=== PATIENT | female | born 1945 | race Caucasian/White ===

== ENCOUNTER 2017-10-31 14:29 | Observation (INO) | payer MEDICARE ==
[2017-10-31] MEDS ORDERED: TEMAZEPAM 15 MG CAPSULE PO PRN (15:30)
[2017-10-31 16:36] LABS: BASO % 0.4 % (0-6); EOS % 1.1 % (0-6); GRAN % 64.4 % (47-80); HEMATOCRIT 33.4 % (35.0-47.0); LYMPH % 23.9 % (16-45); MEAN CELL VOLUME 75.6 fl (81-97); MEAN CORPUSCULAR HEMOGLOBIN 22.6 pg (27-33); MEAN CORPUSCULAR HGB CONC 29.9 g/dl (32-36); MEAN PLATELET VOLUME 9.9 fl (7.4-10.4); MONO % 10.2 % (0-9); PLATELET COUNT 528 K/uL (130-400); RED BLOOD COUNT 4.42 M/uL (3.80-5.40); WHITE BLOOD COUNT W/O DIFF 7.3 K/uL (4.2-12.2)
[2017-10-31 16:50] LABS: BLOOD UREA NITROGEN 37 mg/dL (8-23); CREATININE 1.2 mg/dL (0.5-0.9); EST GLOMERULAR FILTRATION RATE 47 mL/min; INR 1.1; PARTIAL THROMBOPLASTIN TIME 32.9 SECONDS (24.5-39.1); PROTHROMBIN TIME (PATIENT) 11.6 SECONDS (9.5-12.1)
[2017-10-31 16:51] LABS: TOTAL PROTEIN 7.2 g/dL (6.6-8.7)
[2017-10-31 16:52] LABS: RED CELL DISTRIBUTION WIDTH 25.1 % (11.5-14.5)
[2017-10-31 16:53] LABS: GLUCOSE,RANDOM 103 mg/dL (74-109)
[2017-10-31 16:56] LABS: ALBUMIN 4.5 g/dL (4.0-5.0); ALKALINE PHOSPHATASE 71 U/L (35-104); ALT/SGPT 7 U/L (<33); AST/SGOT 18 U/L (10.0-35.0)
[2017-10-31 16:58] LABS: BILIRUBIN,DIRECT < 0.2 mg/dL (0-0.3)
[2017-10-31 16:58] LABS: % SATURATION 33 % (20-50)
[2017-10-31 17:07] LABS: FERRITIN 36.36 ng/mL (13-150)
[2017-10-31] MEDS: BISACODYL 5 MG TABLET PO ONE ×2 (18:23→18:46)
[2017-10-31] MEDS: FERROUS SULFATE 325 MG TAB PO SCH ×2 (18:46→21:47)
[2017-10-31] MEDS: 0.9 % SODIUM CHLORIDE 1000ML 1,000 ML IV SCH (18:46)
[2017-10-31] MEDS: ALPRAZOLAM 0.25 MG TABLET PO SCH (21:47)
[2017-10-31] MEDS ORDERED: LISINOPRIL 20 MG TABLET PO SCH (22:00)
[2017-10-31] MEDS ORDERED: DILTIAZEM HCL 120 MG ER CAPSULE PO ONE (22:45)
[2017-10-31 22:55] LABS: HEMATOCRIT 31.9 % (35.0-47.0); HEMOGLOBIN 9.6 gm/dl (11.6-16.0)
[2017-11-01] MEDS: 0.9 % SODIUM CHLORIDE 1000ML 1,000 ML IV SCH ×2 (03:39→04:53)
[2017-11-01 06:32] LABS: HEMATOCRIT 29.4 % (35.0-47.0); HEMOGLOBIN 8.8 gm/dl (11.6-16.0)
--- NOTE | 2017-11-01 09:51 | History and Physical Report ---
DATE: 10/31/2017 CHIEF COMPLAINT: Weakness, short of breath with exertion, anemia, tachycardia. 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 Cole, who darrius labs with a hemoglobin of 7.3 at [facility] about 7-10 days ago. She was started on iron therapy. Was getting better today. Was seeing Dr. Roche today in the office and hemoglobin was at 9.0. She was still tachycardic, dizzy, lightheaded and Dr. Roche wanted her admitted to the hospital for GI consult and She denies any pain in her abdomen or seeing any blood in her stools or vomiting. serial hemoglobins. He was concerned about her symptoms of being short of breath and weak. PAST MEDICAL HISTORY: History of atrial fibrillation on Eliquis, history of peripheral arterial disease in her legs with stents in both legs, history of renal insufficiency, history of osteoarthritis of the hips, ex-tobacco smoker, stopped in 2008. PAST SURGICAL HISTORY: She has stents in her legs for peripheral arterial disease 2014, bilateral shoulder scope, hysterectomy, heart catheterization, coronary artery disease. She had a hysterectomy because of carcinoma in situ. MEDICATIONS: 1. Nicotrol 10 mEq p.r.n. 2. Ferrous sulfate 325 t.i.d. 3. Eliquis 5 mg b.i.d. 4. Alprazolam 0.25 b.i.d. 5. Dyazide 1 tablet daily, 37.5/25 mg. 6. Crestor 20 mg daily. 7. Halcion 0.25 mg at h.s. for insomnia. 8. Lisinopril 20 mg a day. ALLERGIES: No known drug allergies. FAMILY/PSYCHOSOCIAL HISTORY: Heart disease with her father. Brother and sister have heart disease. Denies any cigarettes at this time but was a heavy smoker. Started smoking in 1962 and stopped in 2008. No drug use or alcohol use. REVIEW OF SYSTEMS: HEENT: No upper respiratory infection symptoms, cough, cold, or congestion. No visual problems. Cardiovascular: No chest pain but she is short of breath with working with fatigue. Respiratory: Denies cough, cold, or congestion. She is short of breath with exertion. Gastrointestinal: She denies any bloody stools, black stools. She is on iron therapy 3 times a day because of her anemia. Genitourinary: No dysuria, hematuria, frequency, or burning on urination. Musculoskeletal: She has arthritis in her hips. Neurological: No CVA, paralysis, or paresthesias. Gynecological: She had a hysterectomy. No lumps in her breasts. Endocrine: No diabetes or thyroid disease. Integument: No rash, ulcers, change in moles, or yellow skin. PHYSICAL EXAMINATION: VITALS: Height 5 feet, weight 138 pounds. Vital signs are in the chart. HEENT: Pupils are equal, round, and reactive to light and accommodation. Extraocular muscles are intact. Throat is clear. Nose is clear. Tympanic membranes are pineda. NECK: Supple. No jugular venous distention. No hepatojugular reflux. No carotid bruits. Thyroid is smooth. CARDIOVASCULAR: Regular rate and rhythm, in atrial fibrillation. RESPIRATORY: Clear to auscultation and percussion. ABDOMEN: Soft, nontender on palpation. No masses palpated. EXTREMITIES: No pitting edema. No clubbing. Full range of motion. Peripheral pulses are good. BREASTS: Deferred. GYNECOLOGICAL: Exam deferred. RECTAL: Black stools. No blood on the examining finger. Hemoccult sent to the lab. GENITALIA: Normal female genitalia. NEUROLOGIC: Cranial nerves II-XII intact. No gross defects. Sensation normal, strength normal. Deep tendon reflexes equal bilaterally with Babinski negative. MENTAL STATUS: Alert and oriented x3. IMPRESSION: 1. Anemia. 2. Question GI bleed. 3. History of atrial fibrillation, on Eliquis. 4. History of peripheral arterial disease. 5. Renal insufficiency. 6. Osteoarthritis of the hips. 7. Ex-tobacco smoker. Stopped in 2008. PLAN: Serial hemoglobin q.8 h. GI consult. IV normal saline 75 mg/hour. Continue the iron t.i.d. We will make her n.p.o. so she could possibly have a scope tonight and will consult GI to see if they would like to do prep for a colonoscopy. INPATIENT CERTIFICATION: Admit to inpatient care. Based on my medical assessment, after consideration of patient's risk factors, age, comorbidities, and patient's presenting symptoms and acuity, I expect that this patient will remain in the hospital greater than or equal to 2 midnights and that the services needed warrant inpatient care because of anemia, GI bleed, tachycardia, and dyspnea with exertion. Estimated length of stay is 2 days. The patient may reasonably be expected to be discharged or transferred to a hospital within 96 hours after admission to [facility]. I certify that my determination is in accordance with my understanding of Medicare requirements for reasonable and necessary inpatient services. LASHA
[2017-11-01] MEDS ORDERED: PATIENT OWN MED: ROSUVASTATIN 20 MG PO SCH (10:00)
[2017-11-01] MEDS: ALPRAZOLAM 0.25 MG TABLET PO SCH (11:20)
[2017-11-01] MEDS: FERROUS SULFATE 325 MG TAB PO SCH (11:20)
--- NOTE | 2017-11-01 12:46 | Discharge Note ---
VTE H&P Assessment - Risk for VTE Risk for VTE: No Risk Level: Very Low Risk Assessment Date: 10/31/17 Risk Assessment Time: 10:00 VTE Orders Placed or Will Be Placed: No VTE Reason for No Prophylaxis: Not Indicated Discharge Medications - Discharge Medications Prescriptions: Diltiazem HCl [Cardizem Cd] 120 mg PO DAILY #30 cap.er.24h Omeprazole 20 mg PO DAILY #30 tab. Home Medications: Ambulatory Orders Alprazolam 0.25 mg PO BID 06/15/16 [Last Taken 10/31/17] Apixaban [Eliquis] 5 mg PO BID 06/15/16 [Last Taken 10/31/17] Lisinopril [Zestril] 20 mg PO QHS 06/15/16 [Last Taken 10/30/17] Triazolam [Halcion] 0.25 mg PO QHS 06/15/16 [Last Taken 10/30/17] Ferrous Sulfate 325 mg PO TID 10/31/17 [Last Taken 10/31/17] Nicotine [Nicotrol] 10 mg IH ASDIR PRN 10/31/17 [Last Taken Unknown] Rosuvastatin Calcium 20 mg PO DAILY 10/31/17 [Last Taken 10/31/17] Triamterene/Hydrochlorothiazid [Triamterene-Hctz 37.5-25 mg Tb] 1 tab PO DAILY 10/31/17 [Last Taken 10/31/17] Diltiazem HCl [Cardizem Cd] 120 mg PO DAILY #30 cap.er.24h 11/01/17 [Last Taken Unknown] Omeprazole 20 mg PO DAILY #30 tab. 11/01/17 [Last Taken Unknown] Discharge Note - Date Date of Discharge Note: 11/01/17 Disposition: Home, Self-Care Additional Instructions: follow up with Dr. Roche in 6 days continue iron three times a day start omeprazole 20 mg once a day start cardizem CD 120 mg one a day because of fast heart rate in the hospital and she may not need this at home(Chronic Atrial fib) Her Bp is running slightly low 98/52 Referrals: Kervin Roche M.D., F.A.C.P. [Primary Care Provider] - Activity at Discharge: Increase Activity as Tolerated
[2017-11-01] MEDS ORDERED: PROPOFOL 10 MG/ML VIAL IV ONE (13:31)
[2017-11-01] MEDS ORDERED: LIDOCAINE 1% MDV (10MG/ML) 20ML VIAL SQ ONE (13:31)
--- NOTE | 2017-11-02 08:51 | Operative Note ---
DATE OF SURGERY: 11/01/2017 OPERATION: 1. ESOPHAGOGASTRODUODENOSCOPY with photo. 2. COLONOSCOPY with cold forceps polypectomy. PREOPERATIVE DIAGNOSIS: Microcytic anemia, suspected GI bleed. POSTOPERATIVE DIAGNOSES: 1. Nonbleeding gastric AVM. 2. Ascending colon polyps x2. PROCEDURE: After informed consent was obtained from the patient, she was placed in the left lateral decubitus position in the endoscopy suite, sedated and monitored by the department of anesthesia. A well-lubricated [id number] gastroscope was placed in the posterior oropharynx and under direct visualization passed to the proximal esophagus. The endoscope was advanced through the proximal, mid, and distal esophagus. The GE junction, esophagus, gastric body, antrum, pylorus , duodenal bulb, and sweep were unremarkable. J-turn views of the proximal stomach revealed a mid gastric body AVM which was not bleeding. No fresh or old blood was seen throughout the upper GI tract. There was no evidence of any mass lesions throughout the upper GI tract. No fresh or old blood was seen. The endoscope was straightened and retracted from the patient with no new findings noted. It should be noted that the AVM was not instrumented due to the recent use of Eliquis. Digital rectal exam was unremarkable. A well-lubricated [id number] colonoscope was inserted into the rectum and advanced to the cecum. Preparation quality was excellent. The cecum, ascending colon, transverse colon, descending colon, sigmoid colon, and rectum were free of inflammatory changes or mass lesions. No AVMs were seen. There were 2 diminutive polyps in the ascending colon which were removed with a cold forceps, they were unable to be retrieved through the suction so no biopsies taken for pathology. No excessive bleeding was noted. J- turn views of the anorectum were unremarkable. The endoscope was straightened, the rectal ampulla deflated, and the endoscope was removed. RECOMMENDATIONS: I would suggest the patient undergo a capsule evaluation as an outpatient. Would also recommend she undergo iron studies if this has not been recently performed. These may in fact be pending but I did not see these results in the chart. As always, thank you for allowing me to participate in the healthcare of your patients. CC: LANIE ESQUIVEL MD, FACP DO LASHA Jimenez
--- NOTE | 2017-11-02 08:51 | Medical Records Consult ---
DATE OF CONSULTATION: 11/01/2017 CHIEF COMPLAINT: Anemia. HISTORY OF CHIEF COMPLAINT: The patient is a very pleasant 72-year-old woman who was admitted with exertional shortness of breath as well as anemia and tachycardia. She was noted to have a hemoglobin of 7.3 on outpatient routine lab by Dr. Shaikh. She was subsequently admitted to the hospital. She denies any history of melena, hematochezia, constipation, diarrhea, nausea, vomiting, dysphagia, weight loss, or anorexia. She states that she had her last colonoscopy approximately 12 years ago. She has been on some supplemental iron. PAST MEDICAL HISTORY: AFib, peripheral vascular disease, chronic renal insufficiency, osteoarthritis, and history of tobacco use, quit in 2008. PAST SURGICAL HISTORY: Coronary stenting, hysterectomy, bilateral shoulder arthroscopy. HOME MEDICATIONS: 1. Nicotrol. 2. Ferrous sulfate. 3. Eliquis. 4. Alprazolam. 5. Dyazide. 6. Crestor. 7. Halcion. 8. Lisinopril. ALLERGIES: None. FAMILY HISTORY: Heart disease in father. Brother and sister have had heart disease and has a history of smoking. REVIEW OF SYSTEMS: Noted per the admission H&P by Dr. Mikael Sr dated 10/31/2017. No other additions to the 14-point review of systems other than that noted in the History of Present Illness. PHYSICAL EXAMINATION: VITAL SIGNS: Blood pressure 97/52, pulse 84, respirations 18, room air saturation of 94%. GENERAL: She is awake, alert, oriented x3, nontoxic. Appears to be in no acute distress. HEENT: Head is atraumatic, normocephalic. No temporal muscle wasting noted. Extraocular muscles are intact. No scleral icterus or conjunctival injection noted. NECK: Supple. Trachea midline. There was a bruit in the right carotid listening post. Neck was otherwise supple. HEART: Regular with occasional ectopic beats. No murmurs were readily noted. LUNGS: Clear to auscultation without rales, rhonchi, or wheezing. Normal to percussion. ABDOMEN: Soft. Positive bowel sounds. No guarding, rebound, rigidity, tenderness, or palpable hepatosplenomegaly. EXTREMITIES: No clubbing, cyanosis, or edema. LABORATORY DATA: White count 7.3, hemoglobin initially 9.6, hematocrit 31.9, MCV 75.6, platelets 528. PT 11.6, INR 32.9. Sodium 133, potassium 4.2, chloride 97, CO2 21, BUN 37, creatinine 1.2. B12 greater than 2000. Folate was greater than 20. Liver chemistries were normal. Occult blood was negative. IMPRESSION: 1. Microcytic anemia of unclear origin, rule out GI blood loss. 2. Peripheral vascular disease. 3. Atrial fibrillation. 4. History of tobacco use. RECOMMENDATIONS: We will proceed with an upper and lower endoscopy to further evaluate and rule out GI blood loss as a source for her anemia. If that is unremarkable, perhaps a small bowel capsule would be helpful. As always, thank you for allowing me to participate in the healthcare of your patient. CC: Dr. Kerwin Sr, DO COLBY
--- NOTE | 2017-11-02 08:51 | Discharge Summary ---
DATE: 11/01/2017 DISCHARGE DIAGNOSES: 1. Anemia. 2. 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 Also need to rule out iron deficiency as a possible reason for her severe anemia. The AV malformation was small. 3. Polyp in the colon. 4. Atrial fibrillation, chronic. She will restart the Eliquis. 5. Renal insufficiency. 6. Osteoarthritis of the hips. 7. History of peripheral arterial disease. 8. Ex-tobacco use. ATTENDING PHYSICIAN: Jesus Sr DO REASON FOR HOSPITALIZATION: Weakness, shortness of breath with exertion, anemia, and tachycardia. This 72-year-old female presented from Dr. Roche's office being weak, tachycardic, and he was concerned that she needed to be inpatient for evaluating where the anemia is coming from and her symptoms of being short of breath with exertion and weakness. She was admitted for serial hemoglobin and GI consult, EGD and colonoscopy. SIGNIFICANT FINDINGS: Hemoglobin initially when she came in here was 9.0. At [facility] it was 7.3 about 10 days earlier. She was continued on the iron therapy. The rest of her labs: WBC 7300, platelet count 528,000, granulocytes 64%, lymphocytes are 23%, monocytes are 10%. PT/INR was 1.1. Potassium 4.2, sodium 133, chloride 97, BUN 37, creatinine 1.2, GFR 47. Serum iron was good at 110. Total iron binding capacity was 326, percent saturation 33, percent ferritin 36.36. Liver enzymes unremarkable. Vitamin B12 is greater than 2000 and folate was greater than 20. Stool for Hemoccult was negative. It was black because of iron therapy. THERAPY PROVIDED: The patient was given IV fluids cautiously, serial hemoglobins and prepped for EGD/colonoscopy. Dr. Tam consulted and did an EGD and colonoscopy. On the EGD found a small AV malformation and on the colonoscopy a small polyp. He recommended camera and to further pursue iron studies. HOSPITAL COURSE: Unremarkable. Feeling better. CONDITION ON DISCHARGE: Much improved. DISCHARGE INSTRUCTIONS: Follow up with Dr. Roche in 6 days. Also, Dr. Tam will schedule a camera study and that will be set up as an outpatient. She is to continue iron therapy 325 three times a day, start omeprazole 20 mg once a day for at least 2 months, start Cardizem CD 120 mg because she had tachycardia in the hospital from her atrial fibrillation. This may not be necessary because she tends to run a low blood pressure 97/52 and she may not tolerate this dose. Dr. Roche can reassess in 6 days to see if it needs to be adjusted or stopped. The patient was a little anxious about not going with something because of her fast heart rate. She does not seem to know when it is fast. She was asymptomatic when it was 140-150 beats per minute. We will restart the Eliquis and continue her home medications of ferrous sulfate 325 t.i.d., Eliquis 5 mg b.i.d., Xanax 0.25 b.i.d., Dyazide 37.5/25 once a day, Crestor 20 mg a day, Halcion 0.25 at h.s., and lisinopril 20 mg a day. CC: LANIE ROCHE MD, FACP [facility]
== END 2017-11-01 13:32 | disposition home or self-care (01) ==
LOC: INTOOBSV 14:29 → MEDSURG 14:29
PROVIDERS: ADMIT Emergency Medicine; ATTEND Emergency Medicine
DX: Q27.33 Arteriovenous malformation of digestive system vessel (principal); K63.5 Polyp of colon; I10 Essential (primary) hypertension; I48.91 Unspecified atrial fibrillation; Z79.01 Long term (current) use of anticoagulants; I73.9 Peripheral vascular disease, unspecified; N28.9 Disorder of kidney and ureter, unspecified; R53.1 Weakness; R06.02 Shortness of breath; R00.0 Tachycardia, unspecified; Z87.891 Personal history of nicotine dependence
CPT/HCPCS: 80048; 80076; 82272; 82607; 82728; 82746; 83550; 85014; 85018; 85025; 85610; 85730; J7030